=== PATIENT | male | born 1970 | race Caucasian/White ===

== ENCOUNTER 2017-11-14 10:24 | Emergency (ER) | payer BC ==
[~2017-11-14] VITALS: Ht 182.9 cm; Wt 95.3 kg
[~2017-11-14 10:24] MED LIST: BACL10TA PO; HYDR-757 PO; KETO-22 PO
--- OUTSIDE RECORDS SUMMARY | 2017-11-14 10:30 | XMS REPORT | Continuity of Care Document ---
Author Author [facility] Organization [facility] Address Unknown Phone Unavailable Allergies Active Description Code Type Severity Reaction Onset Reported/Identified Relationship to Patient Clinical Status Yes meperidine [id number] Drug Allergy Mild N/A 03/18/2009 Medications There is no data. Problems Date Dx Coded Attending Type Code Diagnosis Diagnosed By 03/19/2011 Ot 724.2 03/19/2011 Ot 846.0 03/19/2011 Ot E000.8 03/19/2011 Ot E928.9 12/11/2014 BRAYDEN ROMO DO Ot 724.2 12/11/2014 BRAYDEN ROMO DO Ot 724.4 05/24/2015 JED ROBBINS Ot 870.9 OPN WND OCULAR ADNEX NOS 05/24/2015 JED ROBBINS Ot 916.0 ABRASION HIP LEG 05/24/2015 JED ROBBINS Ot E000.8 OTHER EXTERNAL CAUSE STATUS 05/24/2015 JED ROBBINS Ot E888.1 FALL STRIKING OBJECT NEC 09/06/2017 BRAYDEN ROMO DO Ot 724.2 LUMBAGO 09/06/2017 BRAYDEN ROMO DO Ot 724.4 LUMBOSACRAL NEURITIS NOS 09/06/2017 NICK SUE APRN Ot G90.511 COMPLEX REGIONAL PAIN SYNDROME I OF RIGH 09/06/2017 NICK SUE APRN Ot R20.8 OTHER DISTURBANCES OF SKIN SENSATION 09/06/2017 NICK SUE APRN Ot Z87.828 PERSONAL HISTORY OF OTH (HEALED) PHYSICA Procedures There is no data. Results There is no data. Encounters ACCT No. Visit Date/Time Discharge Status Pt. Type Provider Facility Loc./Unit Complaint [id number] 09/06/2017 21:32:00 09/06/2017 22:22:00 DIS Emergency NICK SUE APRN [facility] ER RT HAND BRUISING [id number] 05/24/2015 19:54:00 05/24/2015 20:50:00 DIS Emergency JED ROBBINS [facility] ER FACIAL LAC [id number] 12/10/2014 12:43:00 12/10/2014 23:59:59 CLS Outpatient BRAYDEN ROMO DO [facility] RAD BACK PAIN WITH LUMBAR RADICULOPATHY [id number] 03/18/2011 23:22:00 Document Registration
--- NOTE | 2017-11-14 11:12 | ED Upper Extremity ---
General Chief Complaint: Upper Extremity Stated Complaint: RIGHT HAND NUMB/HX OF CRPS Nursing Triage Note: PT CO OF CRPS OF R HAND 3,4,5 FINGERS. STATES HAPPENED APPROX 5 WEEKS AGO AND RETURNED THIS AM AFTER SHOVELING SNOW. Nursing Sepsis Screen: No Definite Risk Source: patient, old records Exam Limitations: no limitations History of Present Illness Time seen by provider: 10:40 Initial Comments Patient has ER by private conveyance with chief complaint that his right hand third fourth and fifth digits went cold and blue while shoveling the sidewalk. He does not wear gloves. This is been a problem ongoing for 3-1/2 months. He was seen for this in the past and told that he had a complex regional pain syndrome probably related to recent trauma that preceded it about 3 or 4 months ago when he shut the distal tips of his right hand fingers in a window trying to break loose and oriented. He has used NSAIDs and that helps sometimes for the pain but he is not really having a lot of pain as much as they just go numb anytime to get to cold or too hot. He says at that time though he had hyperalgesia but that is improved now. He has not seen his primary care physician for this yet. He is not having weakness in his hand but he does have numbness whenever this fingers get hot or cold and this is causing him to drop things. Other than NSAIDs she has not tried any other medications for this yet. Allergies and Home Medications Allergies Coded Allergies: Meperidine (Verified Allergy, Mild, 03/18/09) Home Medications No Active Prescriptions or Reported Meds Constitutional: No chills EENTM: no symptoms reported Respiratory: No cough, No short of breath Cardiovascular: No chest pain, No palpitations Gastrointestinal: No constipation, No diarrhea, No nausea Skin: No pruritus, No rash Psychiatric/Neurological: Numbness (right hand third fourth and fifth digits palmar side), Paresthesia, Tingling, Denies Weakness Past Qhfilvh-Heartx-Nixwvr Hx Patient Social History Alcohol Use: Denies Use Recreational Drug Use: No Smoking Status: Former Smoker Recent Foreign Travel: No Contact w/Someone Who Travel: No Recent Infectious Disease Expo: No Recent Hopitalizations: No Immunizations Up To Date Tetanus Booster (TDap): Less than 5yrs Seasonal Allergies Seasonal Allergies: No Surgeries History of Surgeries: Yes Surgeries: Orthopedic Respiratory History of Respiratory Disorde: No Cardiovascular History of Cardiac Disorders: No Neurological History of Neurological Disord: No Reproductive System Hx Reproductive Disorders: No Sexually Transmitted Disease: No Gastrointestinal History of Gastrointestinal Di: No Musculoskeletal History of Musculoskeletal Dis: Yes (RIGHT KNEE) Endocrine History of Endocrine Disorders: No Cancer History of Cancer: No Psychosocial History of Psychiatric Problem: No Integumentary History of Skin or Integumenta: No Blood Transfusions History of Blood Disorders: No Adverse Reaction to a Blood Tr: No Family Medical History Significant Family History: No Pertinent Family Hx Physical Exam Vital Signs Vital Sign - Last 12Hours 11/14/17 10:40 Temp 97.3 Pulse 79 Resp 18 B/P (MAP) 162/88 (112) Pulse Ox 96 Capillary Refill : Less Than 3 Seconds General Appearance: WD/WN, no apparent distress HEENT: PERRL/EOMI, pharynx normal Neck: non-tender, full range of motion, supple, normal inspection Cardiovascular: normal peripheral pulses, regular rate, rhythm Respiratory: no respiratory distress, no accessory muscle use Elbow/Forearm: normal inspection, non-tender, no evidence of injury, normal ROM , soft tissue tenderness (negative for tenderness when tapping over ulnar nerve) , swelling Wrist: Yes normal inspection, Yes non-tender, Yes no evidence of injury, Yes normal ROM, No soft tissue tenderness (negative Tinel tap and Phalen flap), No swelling Hand: non-tender, no evidence of injury, normal ROM, Right (pale discoloration on the third fourth fifth digits of the right hand in the medial distribution) Reflexes: 2+ bicep (R), 2+ bicep (L) Neurologic/Tendon: normal motor functions, normal tendon functions, responds to pain, sensory deficit (diminished sensation medial nerve distribution of the hand) Neurologic/Psychiatric: alert, normal mood/affect, oriented x 3 Skin: warm/dry, pallor (third fourth fifth digit of right hand) Progress/Results/Core Measures Results/Orders Vital Signs/I&O Vital Sign - Last 12Hours 11/14/17 10:40 Temp 97.3 Pulse 79 Resp 18 B/P (MAP) 162/88 (112) Pulse Ox 96 Blood Pressure Mean: 112 Progress Note : Time: 11:10 Progress Note Symptoms are consistent with acute complex regional pain syndrome duration of about 3 months. Her to try him on a month of steroids 20 mg twice a day and have him follow-up in 2 weeks with his primary care physician. If he's having pain he can use NSAIDs and trial the gabapentin. For the sympathetic portion is causing his peripheral vasoconstriction abnormally we can try him on some prazosin at a low dose and have him follow-up with his primary care physician to titrate that dose as needed. He has a history of high blood pressure but is not on any medications right now. Differential diagnosis also includes nerve entrapment syndrome such as carpal tunnel syndrome however he is negative for any clinical examination and may benefit from outpatient workup with a nerve study/EMG. Departure Impression Impression: Primary Impression: Complex regional pain syndrome i of right upper limb Qualified Codes: G90.511 - Complex regional pain syndrome i of right upper limb Disposition: HOME, SELF-CARE Condition: Stable Departure-Patient Inst. Decision time for Depature: 11:14 Referrals: VERO GOMEZ DO (PCP/Family) Primary Care Physician Patient Instructions: Complex Regional Pain Syndrome Add. Discharge Instructions: Try and avoid exposure to extreme heat or cold by wearing gloves. If you're having pain you can use ibuprofen 800 mg every 8 hours, Tylenol 1000 mg every 8 hours or in set of ibuprofen you could use your Naprosyn/Aleve 500 mg twice a day. Finally you're having pain in that hand you should take one capsule of gabapentin up to 3 times daily. You may also put capsaicin oil on the affected area as needed for pain or for the vasoconstriction. We are going to start you on a dose of prazosin to help combat the vasoconstriction 1 mg twice a day. Would also like you to do 2-4 weeks of steroids. Take one 20 mg tablet twice a day of prednisone. If you're unable to tolerate side effects you may cut the pills in half for follow-up with your primary care physician. Do plan on seeing your primary care physician in the next 2 weeks to continue management and evaluation of your symptoms. You may need a nerve study as well as referral to physical therapy/occupational therapy to help maintain function of your right hand. Our goal is to get the symptoms to go away permanently so please keep follow-up with your primary care physician. All discharge instructions reviewed with patient and/or family. Voiced understanding. Scripts Prazosin HCl (Prazosin HCl) 1 Mg Capsule 1 MG PO BID for 30 Days, #60 CAP 0 Refills Prov: RODNEY CORCORAN 11/14/17 Gabapentin (Gabapentin) 100 Mg Capsule 100 MG PO TID Y for PAIN-MODERATE TO SEVERE, #30 CAP 0 Refills Prov: RODNEY CORCORAN 11/14/17 Prednisone (Prednisone) 20 Mg Tab 20 MG PO BID for 30 Days, #60 TAB 0 Refills Prov: RODNEY CORCORAN 11/14/17 Copy Copies To 1: VERO GOMEZ TITUS J Nov 14, 2017 11:12
[2017-11-14] MEDS ORDERED: PRD20T PO (11:19)
[2017-11-14] MEDS ORDERED: PRAZ1CAP2 PO (11:19)
[2017-11-14] MEDS ORDERED: GABA-486 PO (11:19)
[2017-11-14 11:24] VITALS: BP 162/88
== END 2017-11-14 11:24 | disposition home or self-care (01) ==
LOC: EDUNIT# 10:24 → ER 10:27
DX: G90.511 Complex regional pain syndrome I of right upper limb (principal); Z87.891 Personal history of nicotine dependence
CPT/HCPCS: 99282